=== PATIENT | female | born 1975 | race Caucasian/White ===

== ENCOUNTER 2019-06-15 19:20 | Emergency (ER) | payer BC ==
[~2019-06-15] VITALS: Ht 175.3 cm; Wt 104.3 kg
[2019-06-15 20:30] VITALS: BP_SYST 130
--- NOTE | 2019-06-16 00:20 | NUR ---
Patient to ER bed 8 to gown for evaluation. Side rails up.
--- NOTE | 2019-06-16 00:21 | NUR ---
Patient brought in complaining of throbbing intermittent headache to the right side x 2 weeks. Pain 7/10. Denies any nausea, vomiting or diarrhea. Denies any blurry vision. No other complaints/injuries per patient or as noted. Will continue to monitor.
--- NOTE | 2019-06-16 00:22 | NUR ---
Note amanda in ED - 06/16/19 at 0309 by [email or web address] Patient to bed 8 to [facility] for evaluation. Side rails up.
--- NOTE | 2019-06-16 00:24 | NUR ---
ER at bedside examining patient.
[2019-06-16] MEDS ORDERED: HYDROcodone/ACETAMIN 5-325 MG TAB (NORCO/ VICODIN) PO ONE (00:30)
[2019-06-16 00:42] VITALS: BP_SYST 128
--- NOTE | 2019-06-16 00:42 | NUR ---
Patient given written and verbal discharge instructions and verbalizes understanding. ER MD discussed with patient the results and treatment provided. Patient in stable condition. ID arm band removed. Rx of [place] given. Patient educated on pain management and to follow up with PMD. Pain Scale 0/10 Opportunity for questions provided and answered. Medication side effect fact sheet provided.
== END 2019-06-16 00:42 | disposition home or self-care (01) ==
LOC: SED 19:20
DX: R51 Headache (principal); I10 Essential (primary) hypertension; Z90.49 Acquired absence of other specified parts of digestive tract
CPT/HCPCS: 99283